=== PATIENT | female | born 1930 | race Caucasian/White ===

== ENCOUNTER → 2019-11-09 14:37 | Outpatient (CLI) | payer MEDICARE, BC | END | disposition home or self-care (01) | LOC: D.RAD 14:37 | PROVIDERS: ATTEND Emergency Medicine | DX: M25.552 Pain in left hip (principal) ==

== ENCOUNTER → 2020-03-14 11:01 | Outpatient (CLI) | payer MEDICARE, BC | END | disposition home or self-care (01) | LOC: D.RAD 11:01 | PROVIDERS: ATTEND Legal Medicine | DX: M54.5 Low back pain (principal) ==